=== PATIENT | female | born 1975 ===

== ENCOUNTER 2025-02-21 08:16 | Outpatient (REF) | payer OTHER, SELFPAY ==
--- OUTSIDE RECORDS SUMMARY | 2025-02-21 08:34 | XMS_ITS | Clinical Summary ---
[facility] Organization [facility] Address [address] [place] [address] Care Team Providers Care Media Liaison Officer Name Role Phone Unavailable Primary Care Provider Unavailabl e Medications Medication Sig Dispensed Refills Start Date End Date Status ondansetron (ZOFRAN-ODT) 4 MG disintegrating tablet Take 1 tablet (4 mg total) by mouth every 8 (eight) hours as needed for nausea for up to 30 doses. 30 tablet 0 08/12/2022 Active famotidine (Pepcid) 20 MG tablet Take 1 tablet (20 mg total) by mouth 2 (two) times a day. 60 tablet 0 08/12/2022 Active Active Problems No known active problems Social History Tobacco Use Types Packs/Day Years Used Date Smoking Tobacco: Never Smokeless Tobacco: Never Tobacco Cessation:Counseling Given: Not Answered Alcohol Use Standard Drinks/Week Comments Never 0 (1 standard drink = 0.6 oz pur e alcohol) Sex and Gender Information Value Date Recorded Sex Assigned at Female 06/24/2022 11:56 AM EST Gender Identity Not on file Sexual Orientation Not on file Job Start Date Occupation Industry Not on file Not on file Not on file Last Filed Vital Signs Vital Sign Reading Time Taken Comments Blood Pressure 113/78 08/12/2022 5:10 PM EDT Pulse 96 08/12/2022 5:10 PM EDT Temperature 36.7 C (98.1 F) 08/12/2022 3:29 PM EDT Respiratory Rate 16 08/12/2022 5:10 PM EDT Oxygen Saturation 98% 08/12/2022 5:10 PM EDT Inhaled Oxygen Concentration - - Weight 78.9 kg (174 lb) 08/12/2022 3:29 PM EDT Height 160 cm (5' 3 ) 08/12/2022 3:29 PM EDT Body Mass Index 30.82 08/12/2022 3:29 PM EDT Plan of Treatment Health Maintenance Due Date Last Done Comments Hepatitis B Vaccines (1 of 3 - 3-dose series) 1976 Hepatitis C Screening 1976 COVID-19 Vaccine (#1) 1976 Depression Screening 1988 Preventative Health Evaluation 1994 DTap / Tdap / Td (1 - Tdap) 1995 Cervical Cancer Screening (P ap Smear) 1997 Colon Cancer Screening (Colonoscopy) 2021 Influenza Vaccine (#1) 2024 Pneumococcal Vaccine Aged Out No long er eligible based on patient's age to complete this topic RSV Ped < 20 months Aged Out No longe r eligible based on patient's age to complete this topic
--- OUTSIDE RECORDS SUMMARY | 2025-02-21 08:35 | XMS_ITS | Clinical Summary ---
Author Organization [facility] Address [address] [place] [address] Phone Care Team Providers Care Geospatial Specialist Name Role Phone Freddy Sandra Primary Care Provide r Surgical History Surgery Date Site/Laterality Comments STEREOTACTIC CORE BIOPSY Right CA BREAST REDUCTION HYSTERECTOMY Medical History Medical History Date Comments Diabetes mellitus (CMS/HCC V24, CMS/HCC V28) DX:Diabetes mellitus ([facility]) Social History Tobacco Use Types Packs/Day Years Used Date Smoking Tobacco: Never Smokeless Tobacco: Never Alcohol Use Standard Drinks/Week Comments Never 0 (1 standard drink = 0.6 oz pur e alcohol) Comments No Sex and Gender Information Value Date Recorded Sex Assigned at Female 09/08/2024 1:24 PM EDT Legal Sex Female 8:14 PM EST Gender Identity Female 09/08/2024 1:24 PM EDT Sexual Orientation Straight 09/08/2024 1: 24 PM EDT Obstetrics History Para Term AB IAB SAB Ectopic Multiple Livin g Live Births 1 Last Filed Vital Signs Vital Sign Reading Time Taken Comments Blood Pressure - - Pulse - - Temperature - - Respiratory Rate - - Oxygen Saturation - - Inhaled Oxygen Concentration - - Weight 84.4 kg (186 lb) 09/14/2024 3:55 PM EDT Height 154.9 cm (5' 1 ) 09/14/2024 3:55 PM EDT Body Mass Index 35.14 09/14/2024 3:55 PM EDT Plan of Treatment Upcoming Encounters Date Type Department Care Team (Late st Contact Info) Description 05/16/2025 2:00 PM EST [facility]ointment [facility] [address] [id number] Health Maintenance Due Date Last Done Comments Diabetes: Annual Foot Exam 1986 Diabetes: Annual Retina Eye Exam 1986 Hepatitis B Vaccines (1 of 3 - 19+ 3-dose series) 1995 Cervical Cancer Screening: P ap Smear 1997 Cholesterol Screening (Lipid Panel) 05/22/2023 HIV Screening 05/22/2023 Hepatitis C Screening 05/22/2023 Social Influencers of Health Screening 05/22/2023 Diabetes: Annual GFR (Glomerular Filtration Rate) 08/13/2023 08/12/2022 Depression Screening 04/28/2024 Diabetes: Annual Urine Albumin-Creatinine Ratio (uACR) 09/15/2024 Diabetes: Blood Sugar Contro l Test (HGBA1C) 09/15/2024 COVID-19 Vaccine (2023-2 5 season) 2024 Influenza Vaccine (#1) 2024 3, 02/07/2022 Breast Cancer Screening 11/11/2026 11/12/19, 09/14/2024 Colorectal Cancer Screening: FIT-DNA (Cologuard) 01/25/2027 01/26/2024 DTaP,Tdap,and Td Vaccines (2 - Tdap) 02/08/2032 02/07/2022 RSV Immunization Adult Patients (1 - 1-dose 75+ series) 2051 MMR Vaccines Aged Out 02/07/2022 No longer eligi ble based on patient's age to complete this topic Varicella Vaccines Aged Out 02/07/2022 No longer eligible based on patient's age to complete this topic Pneumococcal Vaccine: Pediatrics (0 to 5 Years) and At-Risk Patients (6 to 49 Years) Aged Out 02/13/2023 No longer eligible b ased on patient's age to complete this topic HIB Vaccines Aged Out No longer eligi ble based on patient's age to complete this topic HPV Vaccines Aged Out No longer eligi ble based on patient's age to complete this topic Hepatitis A Vaccines Aged Out No long er eligible based on patient's age to complete this topic IPV Vaccines Aged Out No longer eligi ble based on patient's age to complete this topic Meningococcal ACWY Vaccine Aged Out N o longer eligible based on patient's age to complete this topic Meningococcal B Vaccine Aged Out No l onger eligible based on patient's age to complete this topic RSV Immunization Patients Under 20 months Aged Out No longer eligible b ased on patient's age to complete this topic Procedures Procedure Name Priority Date/Time Associated Diagnosis Comments MG MAMMO DIAGNOSTIC ADDL VIEWS LEFT Routine 11/11/2024 2:32 PM EDT Breast asymmetry from Last 3 Months or Most Recently Relevant to Health Maintenance Results * MG Mammo Diagnostic Addl Views Left (11/11/2024 2:32 PM EDT) Anatomical Region Laterality Modality Breast Left Mammography 11/11/2024 3:32 PM EDT Impressions 11/11/2024 3:39 PM EDT Decreased conspicuity of an asymmetry in the left breast with diagnostic imaging. No suspicious sonographic correlate. The findings could be related to previous reduction surgery. Short interval follow-up diagnostic left mammography recommended including Tomosynthesis. Findings and recommendations reviewed with the patient. Nevaeh assisted with translation ASSESSMENT: BI-RADS 3: PROBABLY BENIGN RECOMMENDATION(S): 1: Follow-up diagnostic mammogram LEFT in 6 months. [facility] location[facility] at [address], [address] -------- FINAL REPORT -------- Dictated By: Jigar Garcia Dictated Date: 11/11/2024 15:32 ET Assigned Physician: Jigar Garcia Reviewed and Electronically Signed By: Jigar Garcia Signed Date: 11/11/2024 15:39 ET Workstation ID: [id number] Transcribed By: Self Edit Transcribed Date: 11/11/2024 15:32 ET Narrative 11/11/2024 3:39 PM EDT EXAM: DIAGNOSTIC MAMMOGRAPHY, UNILATERAL LEFT ULTRASOUND: DIAGNOSTIC ULTRASOUND, UNILATERAL LEFT HISTORY: Abnormal screening mammogram incompletely characterized asymmetry left breast. Prior reduction mammoplasty. COMPARISON: Left mammography 09/14/24, 05/01/23 TECHNIQUE: Tomosynthesis of the left breast in the craniocaudal projection using spot compression. ADDITIONAL IMAGING: Tomosynthesis of the left breast using full field technique in the mediolateral projection. High-frequency linear transducer ultrasound of the left breast targeted to the area(s) of clinical concern. Computer aided detection was not utilized. TISSUE DENSITY: There are scattered areas of fibroglandular density. (BI-RADS category B) FINDINGS: MAMMOGRAPHY: LEFT BREAST: The 1.3 cm asymmetry in the slightly outer left breast approximately 8 cm from the nipple demonstrated on the screening mammogram becomes less prominent with diagnostic imaging. There is no distortion. There are no suspicious calcifications. The architecture is consistent with prior reduction surgery. ULTRASOUND: LEFT BREAST 5 o'clock position, 8 cm from left nipple No suspicious mass. No suspicious area of altered echotexture. Procedure Note Jigar Garcia MD - 11/11/2024 EXAM: DIAGNOSTIC MAMMOGRAPHY, UNILATERAL LEFT ULTRASOUND: DIAGNOSTIC ULTRASOUND, UNILATERAL LEFT HISTORY: Abnormal screening mammogram incompletely characterizedasymmetry left breast. Prior reduction mammoplasty. COMPARISON: Left mammography 09/14/24, 05/01/23 TECHNIQUE: Tomosynthesis of the left breast in the craniocaudal projectionusing spot compression. ADDITIONAL IMAGING: Tomosynthesis of the left breast using full fieldtechnique in the mediolateral projection. High-frequency linear transducer ultrasound of the left breast targeted tothe area(s) of clinical concern. Computer aided detection was not utilized. TISSUE DENSITY: There are scattered areas of fibroglandular density.(BI-RADS category B) FINDINGS: MAMMOGRAPHY: LEFT BREAST: The 1.3 cm asymmetry in the slightly outer left breast approximately 8 cmfrom the nipple demonstrated on the screening mammogram becomes lessprominent with diagnostic imaging. There is no distortion. There are no suspicious calcifications. The architecture is consistent with prior reduction surgery. ULTRASOUND: LEFT BREAST 5 o'clock position, 8 cm from left nipple No suspicious mass. No suspicious area of altered echotexture. IMPRESSION: Decreased conspicuity of an asymmetry in the left breast with diagnosticimaging. No suspicious sonographic correlate. The findings could be related to previous reduction surgery. Short interval follow-up diagnostic left mammography recommended includingTomosynthesis. Findings and recommendations reviewed with the patient. Amaryllisassisted with translation ASSESSMENT: BI-RADS 3: PROBABLY BENIGN RECOMMENDATION(S): 1: Follow-up diagnostic mammogram LEFT in 6 months. [facility] location[facility] at [address], [address] -------- FINAL REPORT -------- Dictated By: Jigar Garcia Dictated Date: 11/11/2024 15:32 ET Assigned Physician: Jigar Garcia Reviewed and Electronically Signed By: Jigar Garcia Signed Date: 11/11/2024 15:39 ET Workstation ID: [id number] Transcribed By: Self Edit Transcribed Date: 11/11/2024 15:32 ET Freddy Yin IMG BI PROCEDURES Fin al Result from Last 3 Months or Most Recently Relevant to Health Maintenance Insurance [facility] [employer] Care Teams Geospatial Specialist Relationship Specialty Start Date End Date Freddy Sandra [address] [place] [id number] PCP - General Internal Medicine 09/08/24
--- OUTSIDE RECORDS SUMMARY | 2025-02-21 08:35 | XMS_ITS | Clinical Summary ---
Author Organization [facility] Address [address] [place] [address] [address] [place] [address] Care Team Providers Care Wrapper Stemmer Hand Name Role Phone Freddy Sandra MD Primary Care Prov ider Allergies Active Allergy Reactions Criticality Noted Date Comments Insulin Aspart Hives 09/07/2024 Medications atorvastatin (Lipitor) 40 MG tablet Take 1 tablet (40 mg) by mouth Once per day. 90 tablet 3 025 2025 Active gabapentin (Neurontin) 100 MG capsule Take 1 capsule (100 mg) by mouth 3 times daily. 270 capsule 3 025 2025 Active pen needle 32G x 4 mm miscIndication s:Type 2 diabetes mellitus with other circulatory complication, with long-term current use of insulin (HCC) Use as instructed 100 each 12 025 2025 Active Tirzepatide-We ight Management (Zepbound) 5 MG/0.5ML solutionIndica tions:Type 2 diabetes mellitus with other circulatory complication, with long-term current use of insulin (HCC) Inject 5 mg under the skin 1 (one) time per week. 3 mL 3 025 Active Lantus SoloStar 100 UNIT/ML pen Inject 45 Units under the skin at bedtime. 15 mL 3 025 Active Lantus SoloStar 100 UNIT/ML pen Inject 40 Units under the skin at bedtime. 3 mL 3 025 2024 Discontinued Tirzepatide-We ight Management (Zepbound) 5 MG/0.5ML solutionIndica tions:Type 2 diabetes mellitus with other circulatory complication, with long-term current use of insulin (HCC) Inject 5 mg under the skin 1 (one) time per week. 3 mL 3 025 2024 Discontinued(R eorder (will not trigger notification to Pharmacy)) Lantus SoloStar 100 UNIT/ML pen INJECT 40 UNITS SUBCUTANEOUSLY AT BEDTIME 15 mL 3 025 2024 Discontinued(R eorder (will not trigger notification to Pharmacy)) Active Problems Problem Noted Date Diagnosed Date Encounter for medical examination to establish c are 09/07/2024 Assessment & Plan (09/07/2024 9:36 AM EDT): Last pcp visit on April ER: - Hospitalization: - Pmhx: DM, hyperlipidemia Pshx: hysterectomy 2013, breast reduction 2014 All: aspart (skin rash) Meds: lantus 40 units, zepbound 5mg, atorvastatin 10mg, gabapentin 100mg tid A0 Menarche: 15 Colonoscopy due mammogram Type 2 diabetes mellitus wit h circulatory disorder, with long-term current use of insulin 09/07/2024 Assessment & Plan (02/14/2025 5:56 PM EDT): Will resend zepbound, she was previously on this treatment with good results, will increase lantus to 45 units, her A1c today was 12%, encourged to keep a low carb/no sugar diet, follow up in 1 month Assessment & Plan (09/07/2024 9:40 AM EDT): On lantus and zepbound will refill medications, new labs will be done on next visit in office, encouraged lifestyle modifications Mixed hyperlipidemia 09/07/2024 Assessment & Plan (02/14/2025 5:57 PM EDT): On statin therapy, new labs will be ordered for guidance of therapy Assessment & Plan (09/07/2024 9:40 AM EDT): On atorvastatin, encouraged lifestyle modifications, follow up on next appointment Encounters Date Type Department Care Team Description 02/15/2025 Telephone [facility] [address] [place] [address] Freddy Sandra MD 02/14/2025 4:00 PM EDT Office Visit [facility] [address] [place] [address] Freddy Sandra MD Plantar fibromatosis (Primary Dx); Type 2 diabetes mellitus with other circulatory complication, with long-term current use of insulin (HCC); Mixed hyperlipidemia; Dietary counseling; Exercise counseling 02/14/2025 Travel 02/10/2025 Telephone [facility] [address] [place] [address] Freddy Sandra MD chart prep 02/02/2025 Refill [facility] [address] [place] [address] Freddy Sandra MD 12/14/2024 Refill [facility] MEDICINE [address] [place], [place] [phone] Freddy Sandra MD Type 2 diabetes mellitus with other circulatory complication, with long-term current use of insulin (CMS/HCC) from Last 3 Months Family History Medical History Relation Name Comments Diabetes Father Diabetes Mother Hypertension Mother Cancer Neg Hx Relation Name Status Comments Father Mother Social History Tobacco Use Types Packs/Day Years Used Date Smoking Tobacco: Never Smokeless Tobacco: Never Tobacco Cessation:Counseling Given: Not Answered Alcohol Use Standard Drinks/Week Comments Never 0 (1 standard drink = 0.6 oz pur e alcohol) Depression Answer Date Recorded Patient Health Questionnaire-9 Score 0 09/07/2024 Patient Health Questionnaire-9 Score 0 09/07/2024 Last PHQ-9: Questionnaire Data Not on file 0 09/07/2024 Housing Stability Answer Date Recorded What is your housing situation today? I have jaylyn garcia 09/07/[address] you li ve. Do you have problems with any of the following? None of the above 09/07/2024 Food Insecurity Answer Date Recorded Within the past 12 months, y ou worried that your food would run out before you got money to buy more: Never True 09/07/2024 Within the past 12 months,th e food you bought just didn't last and you didn't have enough money to get more: Never True Transportation Answer Date Recorded In the past 12 months, has l ack of transportation kept you from medical appts, meetings, work or from getting things needed for daily living? No 09/07/2024 Utilities Answer Date Recorded In the past 12 months, has t he electric, gas, oil or water company threatened to shut off services in your home? No 09/07/2024 Depression Answer Date Recorded Patient Health Questionnaire-2 Score 0 09/07/2024 Internet Access Answer Date Recorded Internet Access Q1 Yes 09/07/2024 Internet Access Q2 Not on file 09/07/2024 Comments Unknown Sex and Gender Information Value Date Recorded Sex Assigned at Female 08/12/2024 10:10 AM EDT Legal Sex Female 10:09 AM EDT Gender Identity Female 09/06/2024 11:16 AM EDT Sexual Orientation Straight 02/15/2025 1: 39 PM EDT Last Filed Vital Signs Vital Sign Reading Time Taken Comments Blood Pressure 130/86 02/14/2025 4:17 PM EDT Pulse 94 02/14/2025 4:17 PM EDT Temperature 36.3 C (97.4 F) 02/14/2025 4:17 PM EDT Respiratory Rate 20 02/14/2025 4:17 PM EDT Oxygen Saturation - - Inhaled Oxygen Concentration - - Weight 82.6 kg (182 lb) 02/14/2025 4:17 PM EDT Height 157.5 cm (5' 2 ) 02/14/2025 4:17 PM EDT Body Mass Index 33.29 02/14/2025 4:17 PM EDT Plan of Treatment Upcoming Encounters Date Type Department Care Team (Late st Contact Info) Description 03/28/2025 3:30 PM EST Telemedicine [facility] [address] [place] [address] Freddy Sandra MD [address] [place] [address] Health Maintenance Due Date Last Done Comments CT Colonography 1976 Colonoscopy 1976 FIT 1976 HIV Screening 1976 Lipid Panel 1976 Sigmoidoscopy 1976 Eye Exam 1986 Family Planning (PISQ) 1991 Hepatitis C Screening 1994 Diabetes: Urine Protein Screening 1995 Hepatitis B Vaccines (1 of 3 - 19+ 3-dose series) 1995 Pap Smear 1997 Cervical Cancer Screening 2006 HPV/Cotest 2006 COVID-19 Vaccine ( season) 2024 Influenza Vaccine (#1) 2024 , 02/13/2023, 02/07/2022 FOBT 01/25/2025 01/26/2024 Mammogram 05/14/2025 11/11/2024, 10/26, 09/14/2024, Additional history exists Diabetes: Hemoglobin A1C 05/17/2025 02/14/2025 Alcohol/Substance Use Screening 09/07/2025 09/07/2024 Depression Screening 09/07/2025 09/07/2024, 09/08/19 SDOH Screening 09/07/2025 09/07/2024 Tobacco Screening 09/07/2025 09/07/2024 Diabetes: Foot Exam 02/14/2026 02/14/2025, 02/14/2025, 02/14/2025, Additional history exists Disability Screening 02/14/2026 02/14/2025 Zoster Vaccines (1 of 2) 2026 Colorectal Cancer Screening 01/25/2027 FIT DNA/Cologuard 01/25/2027 01/26/2024 DTaP/Tdap/Td Vaccines (2 - Tdap) 02/08/2032 02/07/2022 RSV Patients and Patients Aged 60 years or older (1 - 1-dose 75+ series) 2051 Pneumococcal Vaccine: Pediatrics (0 to 5 Years) and At-Risk Patients (6 to 49) Years Completed 02/13/2023 HIB Vaccines Aged Out No longer eligi [...] patient's age to complete this topic Meningococcal Vaccine Aged Out No ivan ritu eligible based on patient's age to complete this topic RSV under 20 months Aged Out No longe r eligible based on patient's age to complete this topic Rotavirus Vaccines Aged Out No longer eligible based on patient's age to complete this topic Procedures Procedure Name Priority Date/Time Associated Diagnosis Comments POCT GLYCATED HEMOGLOBIN, TOTAL Routine 02/14/2025 4:19 PM EDT Type 2 diabetes mellitus with other circulatory complication, with long-term current use of insulin (HCC) POCT GLUCOSE Routine 02/14/2025 4:18 PM EDT Type 2 diabetes mellitus with other circulatory complication, with long-term current use of insulin (HCC) BI MAMMOGRAM SCREENING TOMOSYNTHESIS BILATERAL Routine 09/14/2024 Encounter for screening mammogram for malignant neoplasm of breast from Last 3 Months or Most Recently Relevant to Health Maintenance Results * (ABNORMAL) POCT Hgb A1c (02/14/2025 4:19 PM EDT) Hemoglobin A1C 12.5(A) 4.0 - 5.7 % QC Media Lot # [id number] Lot# Expiration Date Blood 02/14/2025 4:19 PM EDT Freddy Yin MD POINT OF CARE TEST ENTER/EDIT ORDERABLES Final Result * (ABNORMAL) POCT Glucose (02/14/2025 4:18 PM EDT) Glucose Blood, POC 370(A) 60 - 200 mg/dL QC Media Lot # [id number] Lot# Expiration Date Blood Capillary blood specimen / Unknown 02/14/2025 4:18 PM EDT Freddy Yin MD POINT OF CARE TEST ENTER/EDIT ORDERABLES Final Result * BI Mammogram Screening Tomosynthesis Bilateral (09/14/2024) Anatomical Region Laterality Modality Breast Bilateral Mammography Freddy Yin MD IMG BI PROCEDURES Final Result from Last 3 Months or Most Recently Relevant to Health Maintenance [place] [address] [place] [address] [facility] Care Teams Wrapper Stemmer Hand Relationship Specialty Start Date End Date Freddy Sandra MD [address] [place] [phone] PCP - General Internal Medicine 09/07/24
[2025-02-21 13:58] LABS: MANUAL DIFF FLAG NO
[2025-02-21 14:24] LABS: Hematocrit 39.7 % (37.0-47.0); Hemoglobin 12.9 g/dl (12.0-16.0); Imm Gran Abs Auto 0.01 X10*3/uL (0.00-0.03); Imm Gran Pct Auto 0.2 % (0.0-0.4); Lymphocytes Absolute Auto 3.3 X10*3/uL (1.2-4.9); Mean Corpuscular HGB Conc 32.5 g/dl (31.0-35.0); Mean Corpuscular Hemoglobin 28.5 pg (27.0-33.0); Mean Corpuscular Volume 87.8 fL (80.0-98.0); NRBC Abs Auto 0.000 X10*3/uL (0.0-0.012); NRBC Pct Auto 0.0 /100WBC (0.0-0.2); Platelet Count 226 X10*3/uL (160-400); Red Blood Count 4.52 X10*6/uL (4.20-5.50); White Blood Count 6.3 X10*3/uL (4.8-10.8)
[2025-02-21 14:51] LABS: Alanine Aminotransferase 23 U/L (0-31); Albumin Level 4.1 g/dL (3.5-5.0); Alkaline Phosphatase 80 U/L (39-117); Anion Gap 10 (12-20); Aspartate Amino Transferase 24 U/L (5-31); Blood Urea Nitrogen 9 mg/dL (9-16); Calcium 9.2 mg/dL (8.4-10.2); Carbon Dioxide 29 mmol/L (22-29); Chloride 103 mmol/L (96-108); Cholesterol 147 mg/dL (<200); Estimated Glomerular Filt Rate > 60; HDL Cholesterol 45 mg/dL (>40); Potassium 4.7 mmol/L (3.3-5.1); Sodium 137 mmol/L (135-145); Total Protein 7.2 g/dL (6.5-8.0); Triglycerides 84 mg/dL (<150)
[2025-02-21 15:08] LABS: HIV Num 1 0.05 S/CO (0.00-0.99); ~HepC Num1 0.06 S/CO (0.00-0.79); ~Hepatitis C Antibody Nonreactive (Nonreactive)
[2025-02-21 15:12] LABS: Microalbum/Creatinine Ratio Ur 8.0 ug/mg cr (<30)
== END 2025-02-21 08:17 | disposition home or self-care (01) ==
LOC: HO.CHCLDS 08:16
PROVIDERS: Visit Provider Internal Medicine
DX: E11.59 Type 2 diabetes mellitus with other circulatory complications (principal); Z11.4 Encounter for screening for human immunodeficiency virus [HIV]; Z11.59 Encounter for screening for other viral diseases; Z79.4 Long term (current) use of insulin
CPT/HCPCS: 36415; 80053; 80061; 82043; 82570; 84443; 85025; 86803; 87389